=== PATIENT | male | born 1950 | race Caucasian/White ===

== ENCOUNTER 2017-07-03 17:47 | Emergency (ER) | payer MEDICARE, MEDICAID ==
[~2017-07-03] VITALS: Ht 177.8 cm; Wt 80.0 kg
[~2017-07-03 17:47] MED LIST: BACI1PAC7 TOP; CEFE1VIA10 IV; DEXT1DRO6 OP; ENOX40SY7 SQ; FAMO-128 PO; HYDR-568 PO; INSU100V30 SQ; LANTUS SQ; VANC1VIA21 IV
[2017-07-03 19:05] VITALS: BP 110/62
[2017-07-03] MEDS ORDERED: HYDROcodone/acetaminophen 5mg/325mg tablet PO ONE (19:05)
== END 2017-07-03 21:51 | disposition home or self-care (01) ==
LOC: ER 17:47
DX: S00.31XA Abrasion of nose, initial encounter (principal); S09.8XXA Other specified injuries of head, initial encounter; W05.0XXA Fall from non-moving wheelchair, initial encounter; Y93.89 Activity, other specified; Y92.89 Other specified places as the place of occurrence of the external cause; Y99.8 Other external cause status
CPT/HCPCS: 70450; 72125; 73030; 99284